=== PATIENT | male | born 1975 | race American Indian/Alaskan Native ===

== ENCOUNTER 2017-01-15 20:29 | Emergency (ER) | payer SELFPAY ==
[2017-01-15 21:01] VITALS: BP 123/86
--- NOTE | 2017-01-15 22:07 | XRay Report ---
FINAL REPORT PROCEDURE: XR SHOULDER 2 RT TECHNIQUE: Right shoulder radiographs including AP views in internal and external rotation and abduction. CPT 67341 HISTORY: right shoulder pain COMPARISON: No prior studies are available for comparison. FINDINGS: Fracture (s) and/or Dislocation(s): None . Joint space(s): Normal . Soft tissues: Normal . Bone mineralization: Normal . Foreign bodies: None . IMPRESSION: Normal Examination
--- NOTE | 2017-01-15 23:30 | Emergency Department Report ---
Upper Extremity - HPI Chief Complaint: Shoulder Injury Stated Complaint: SHOULDER/NECK PAIN Time Seen by Provider: 01/15/17 23:29 Upper Extremity: Right Shoulder (pain that's been ongoing for a while that flared up over a week.) Occurred When: >5 Days Mechanism: Unsure Severity: severe (9 out of 10) Symptoms: Yes Pain with Movement (right shoulder), Yes Limited Range of Movement (right shoulder), No Deformity, No Numbness, No Weakness, No Swelling, No Bruising/Ecchymosis, No Laceration or Abrasion Other History: Patient reports that he has a history of right shoulder pain that started ongoing denies any injury. He said he lifted heavy object at work and thinks he might of pulled something. He said his pain started again last week at its 9 out of 10 and aching. He reports the pain is at the top of his shoulder anteriorly and radiating in to his arm. Similar incident in the past. He reports [id number] medication is not helping. Denies any loss of sensation or numbness or tingling to extremity. ED Review of Systems ROS: Stated complaint: SHOULDER/NECK PAIN Other details as noted in HPI Comment: All other systems reviewed and negative Constitutional: denies: chills, fever Respiratory: no symptoms reported Cardiovascular: denies: chest pain, palpitations, edema, syncope Gastrointestinal: denies: abdominal pain, nausea, vomiting Musculoskeletal: arthralgia. denies: back pain, joint swelling, myalgia Skin: denies: rash Neurological: denies: headache, weakness, numbness, paresthesias, confusion, abnormal gait, vertigo ED Past Medical Hx - Past Medical History Previous Medical History?: Yes Additional medical history: Chronic right shoulder pain - Surgical History Past Surgical History?: Yes Additional Surgical History: Right Inguinal Hernia repair. - Family History Family history: hypertension - Social History Smoking Status: Current Every Day Smoker Substance Use Type: None - Medications Home Medications: Home Medications Medication Instructions Recorded Confirmed Last Taken Type Amoxicillin [Trimox CAP] 500 mg PO Q8H #30 capsule 09/04/14 Unknown Rx HYDROcodone/APAP 10-325 [Pomona 1 each PO Q6HR PRN #16 tablet 09/04/14 Unknown Rx 10-325 mg TAB] predniSONE [Deltasone] 20 mg PO TID #12 tab 09/04/14 Unknown Rx traMADol [Ultram] 50 mg PO Q6HR PRN #12 tablet 01/16/17 Unknown Rx Upper Extremity Exam - Exam General: Vital signs noted. No distress. Alert and acting appropriately. This is a 41-year-old male well-nourished well-developed in no acute distress. Head and Torso: No HEENT Abnormality (normal examination), No Neck Tenderness ( full, supple, full range of motion and no C-spine tenderness), No Chest/Lungs Abnormality (clear to auscultate bilaterally, normal work of breathing), No Abdominal Tenderness (soft, nontender to palpate positive bowel sounds in all quadrants) Shoulder Exam: Yes Normal Range of Motion in Shoulder (patient with full range of motion to extremities and shoulder but he said that it hurts to extend his shoulder out words and backwards), Yes AC Joint Tenderness, No Shoulder Tenderness, No Clavicle Tenderness, No Shoulder Deformity Arm Exam: No Arm/Humerus Tenderness, No Arm Deformity Elbow: Yes Normal Range of Motion in Elbow, No Elbow Tenderness, No Elbow Deformity Forearm: No Forearm Tenderness, No Forearm Deformity, No Pain with Pronation, No Pain with Supination Wrist: Yes Normal ROM in Wrist, No Wrist Tenderness, No Wrist Deformity, No Snuffbox Tenderness, No Pain with Axial Thumb Compression Hand: Yes Normal ROM in Digit(s), No Hand Tenderness, No Hand Deformity, No Digit Tenderness, No Digit(s) Deformity, No Tendon Dysfunction CMS Exam: Yes Normal Capillary Refill, Yes Normal Distal Sensation, No Broken Skin, No Normal Distal Pulses ED Course Vital Signs 01/15/17 20:50 Temperature 98.5 F Pulse Rate 90 Respiratory 16 Rate Blood Pressure 123/86 Blood Pressure 123/86 [Left] O2 Sat by Pulse 100 Oximetry - Reevaluation(s) Reevaluation #1: 01/16/17 00:11 Patient received Pomona 5/325 2 tablets in emergency room for right shoulder pain. - Orthopedic Splinting/Casting Injury #1 Side: right Upper Extremity Injury Location: shoulder Upper Extremity Immobilizer: sling/shoulder immobilize ED Medical Decision Making - Radiology Data Radiology results: report reviewed X-ray of right shoulder revealed no acute bony abnormality and no dislocation or fracture. - Medical Decision Making ED course: Patient with acute exacerbation of chronic shoulder pain. X-ray report revealed no acute findings and this was explained to patient. See procedure note for splinting of shoulder. Patient and referred to orthopedic doctor for follow-up visit chronic shoulder pain. He was given Pomona 5/325 mg 2 tablets in emergency room for shoulder pain , Discharged home with family with prescription for Ultram. Critical care attestation.: If time is entered above; I have spent that time in minutes in the direct care of this critically ill patient, excluding procedure time. ED Disposition Clinical Impression: Arthralgia of right shoulder region Right shoulder strain Qualifiers: Encounter type: initial encounter Qualified Code(s): S46.911A - Strain of unspecified muscle, fascia and tendon at shoulder and upper arm level, right arm , initial encounter Disposition: TO HOME OR SELFCARE Is pt being admited?: No Does the pt Need Aspirin: No Condition: Stable Instructions: Arthralgia (ED), Chronic Pain (ED) Additional Instructions: Please rest affected area for 72 hours Please follow up with orthopedic doctor as instructed. Take Ultram and this will help to relieve her pain. Prescriptions: traMADol [Ultram] 50 mg PO Q6HR PRN #12 tablet PRN Reason: Pain Referrals: JAROD CONNER MD [Staff Physician] - 01/16/17 Forms: Accompanied Note, Work/School Release Form(ED)
[2017-01-15] MEDS ORDERED: NORCO 5/325 PO ONE (23:31)
== END 2017-01-16 00:15 | disposition home or self-care (01) ==
LOC: ED 20:29
DX: S46.911A Strain of unspecified muscle, fascia and tendon at shoulder and upper arm level, right arm, initial encounter (principal); M25.561 Pain in right knee; F17.200 Nicotine dependence, unspecified, uncomplicated; X50.0XXA Overexertion from strenuous movement or load, initial encounter; Y93.9 Activity, unspecified; Y92.9 Unspecified place or not applicable; Y99.9 Unspecified external cause status
CPT/HCPCS: 99284

== ENCOUNTER 2018-10-28 10:22 | Emergency (ER) | payer OTHER ==
[2018-10-28 10:44] VITALS: BP 120/86
--- NOTE | 2018-10-28 11:07 | XRay Report ---
RIGHT KNEE, 3 views: History: Trauma, pain The bony architecture is intact without evidence of fracture or dislocation. A large joint effusion extends to the suprapatellar bursa on the lateral image. IMPRESSION: Large joint effusion. No osseous abnormality is appreciated. If internal derangement is suspected, MRI could be obtained.
[2018-10-28] MEDS ORDERED: IBUPROFEN PO ONE (11:20)
--- NOTE | 2018-10-28 11:20 | Emergency Department Report ---
ED Lower Extremity HPI - General Chief Complaint: Extremity Injury, Lower Stated Complaint: RT KNEE INJURY/PAIN Time Seen by Provider: 10/28/18 11:06 Source: patient Mode of arrival: Ambulatory Limitations: No Limitations - History of Present Illness Initial Comments: Mr. 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 He normally has left knee pain due to old remote injury. Now he injured his right knee after hearing a pop. He has severe pain. Walking with a limp. No other injury. MD Complaint: knee injury -: Sudden, week(s) (1) Injury: Knee: Right Type of Injury: inversion, eversion, hyperextension, hyperflexion Place: work Severity: severe Worsens With: weight bearing Associated Symptoms: snap/pop sensation - Related Data Previous Rx's Medication Instructions Recorded Last Taken Type Amoxicillin [Trimox CAP] 500 mg PO Q8H #30 capsule 09/04/14 Unknown Rx HYDROcodone/APAP 10-325 [Gifford 1 each PO Q6HR PRN #16 tablet 09/04/14 Unknown Rx 10-325 mg TAB] predniSONE [Deltasone] 20 mg PO TID #12 tab 09/04/14 Unknown Rx traMADol [Ultram] 50 mg PO Q6HR PRN #12 tablet 01/16/17 Unknown Rx HYDROcodone/APAP 5-325 [G[place] 1 each PO Q6HR PRN #10 tablet 10/28/18 Unknown Rx 5/325] Ibuprofen 400 mg PO QID 5 Days #15 tablet 10/28/18 Unknown Rx Allergies Allergy/AdvReac Type Severity Reaction Status Date / Time No Known Allergies Allergy Unverified 09/04/14 11:24 ED Review of Systems ROS: Stated complaint: RT KNEE INJURY/PAIN Other details as noted in HPI Constitutional: denies: fever, malaise ENT: denies: epistaxis Respiratory: denies: cough Cardiovascular: denies: chest pain ED Past Medical Hx - Past Medical History Previous Medical History?: No Additional medical history: Chronic right shoulder pain - Surgical History Past Surgical History?: Yes Additional Surgical History: Right Inguinal Hernia repair. - Social History Smoking Status: Current Every Day Smoker Substance Use Type: None - Medications Home Medications: Home Medications Medication Instructions Recorded Confirmed Last Taken Type Amoxicillin [Trimox CAP] 500 mg PO Q8H #30 capsule 09/04/14 Unknown Rx HYDROcodone/APAP 10-325 [[place] 1 each PO Q6HR PRN #16 tablet 09/04/14 Unknown Rx 10-325 mg TAB] predniSONE [Deltasone] 20 mg PO TID #12 tab 09/04/14 Unknown Rx traMADol [Ultram] 50 mg PO Q6HR PRN #12 tablet 01/16/17 Unknown Rx HYDROcodone/APAP 5-325 [G[place] 1 each PO Q6HR PRN #10 tablet 10/28/18 Unknown Rx 5/325] Ibuprofen 400 mg PO QID 5 Days #15 tablet 10/28/18 Unknown Rx ED Physical Exam - General Limitations: No Limitations General appearance: alert, in no apparent distress - Head Head exam: Present: atraumatic, normocephalic - Eye Eye exam: Present: normal appearance - Neck Neck exam: Present: normal inspection, full ROM - Respiratory Respiratory exam: Absent: respiratory distress - Expanded Lower Extremity Exam Right Knee exam: Present: tenderness, swelling (global swelling). Absent: laceration - Neurological Exam Neurological exam: Present: alert, oriented X3 - Psychiatric Psychiatric exam: Present: normal affect, normal mood - Skin Skin exam: Present: warm, dry, intact, normal color ED Course Vital Signs 10/28/18 10:42 Temperature 97.6 F Pulse Rate 69 Respiratory 16 Rate Blood Pressure 120/86 O2 Sat by Pulse 100 Oximetry ED Lower Extremity MDM - Radiology Data Radiology results: report reviewed Large effusion, no bony abnormality right knee radiographs read by radiology - Medical Decision Making Mr. Coombs presents with severe right knee injury, right knee sprain. Jp wrap applied by nursing staff under my supervision. Normal alignment neurologically intact after application of jp wrap. Prescribed Gifford and ibuprofen. Referred to orthopedic surgeon. Critical care attestation.: If time is entered above; I have spent that time in minutes in the direct care of this critically ill patient, excluding procedure time. ED Disposition Clinical Impression: Right knee sprain, Right knee injury Disposition: TO HOME OR SELFCARE Is pt being admited?: No Does the pt Need Aspirin: No Condition: Stable Instructions: Knee Effusion (ED), Knee Sprain (ED) Prescriptions: Ibuprofen 400 mg PO QID 5 Days #15 tablet HYDROcodone/APAP 5-325 [G[place]ord 5/325] 1 each PO Q6HR PRN #10 tablet PRN Reason: Pain Referrals: JAROD CONNER MD [Staff Physician] - 3-5 Days Forms: Work/School Release Form(ED)
== END 2018-10-28 11:39 | disposition home or self-care (01) ==
LOC: ED 10:22
DX: S83.91XA Sprain of unspecified site of right knee, initial encounter (principal); G89.29 Other chronic pain; M25.511 Pain in right shoulder; F17.200 Nicotine dependence, unspecified, uncomplicated; X50.9XXA Other and unspecified overexertion or strenuous movements or postures, initial encounter; Y93.89 Activity, other specified; Y92.89 Other specified places as the place of occurrence of the external cause; Y99.8 Other external cause status
CPT/HCPCS: 99283